=== PATIENT | female | born 1950 | race Caucasian/White ===

== ENCOUNTER → 2017-11-21 | Outpatient (CLI) | payer MEDICARE ==
[~2017-11-21] MED LIST: ACYC-57 PO; ALBU8.5H8 INH; CETI-158 PO; DOCU240C53 PO; ESTR42.53 TP; FLUT100B IH; FLUT9.9S NAS; GABA-826 PO; GABA300C10 PO; HYDR25TA11 PO; HYDR7CRE TP; LEVO150T5 PO; LISI-167 PO; MULT1TAB60 PO; OXYB5TAB7 PO; OXYC5CAP2 PO; SERT100T5 PO; TRAM50TA2 PO
[2017-11-21 13:14] LABS: BASOPHILS # (AUTO) 0.03 x10^3/uL (0-0.1); BASOPHILS % (AUTO) 0 % (0-1); EOSINOPHILS # (AUTO) 0.16 x10^3/uL (0-0.4); EOSINOPHILS % (AUTO) 2 % (1-7); LYMPHOCYTES # (AUTO) 1.03 x10^3/uL (1-3.4); LYMPHOCYTES % (AUTO) 12 % (22-44); MD NO; MEAN CORPUSCULAR HEMOGLOBIN 27.5 pg (27.0-34.8); MEAN CORPUSCULAR HGB CONC 32.8 g/dL (32.4-35.8); MEAN CORPUSCULAR VOLUME 83.8 fL (80-100); MEAN PLATELET VOLUME 7.7 fL (7.4-10.4); MONOCYTES % (AUTO) 7 % (2-9); NEUTROPHILS # (AUTO) 6.76 x10^3/uL (1.8-6.8); NEUTROPHILS % (AUTO) 79 % (42-75); PLATELET COUNT 398 x10^3/uL (130-400); RED BLOOD COUNT 5.25 x10^6/uL (3.82-5.3); RED CELL DISTRIBUTION WIDTH 15.1 % (9.6-15.2)
[2017-11-21 13:19] LABS: INTERNATIONAL NORMALIZED RATIO 1.01 (0.93-1.1); PROTHROMBIN TIME 10.4 Seconds (9.6-11.5)
[2017-11-21 13:23] LABS: ALANINE AMINOTRANSFERASE 23 U/L (12-78); ALBUMIN 4.5 g/dL (3.4-5.0); ANION GAP 7 mmol/L (5-15); CALCIUM 10.2 mg/dL (8.5-10.1); CHLORIDE 105 mmol/L (98-107); CREATININE 0.74 mg/dL (0.55-1.02)
[2017-11-21 13:26] LABS: ALKALINE PHOSPHATASE 97 U/L (45-117); BILIRUBIN,TOTAL 0.3 mg/dL (0.2-1.0); TOTAL PROTEIN 8.1 g/dL (6.4-8.2)
[2017-11-21 13:37] LABS: HEMOGLOBIN A1C 5.8 % (4.2-6.3)
== END | disposition home or self-care (01) ==
LOC: STAR 11:58
PROVIDERS: ATTEND Orthopaedic Surgery
DX: Z01.818 Encounter for other preprocedural examination (principal); M16.12 Unilateral primary osteoarthritis, left hip; M25.552 Pain in left hip
CPT/HCPCS: 36415; 80053; 83036; 85025; 85610; 85730; 87081; 93005

== ENCOUNTER 2019-01-30 14:57 | Inpatient (IN) | payer MEDICARE ==
[~2019-01-30] VITALS: Ht 170.2 cm; Wt 93.0 kg
[~2019-01-30 14:57] MED LIST changes: +HYDR-826 PO; -HYDR25TA11 PO; +MELO7.5T31 PO; +SERT100T32 PO; -SERT100T5 PO
--- NOTE | 2019-01-30 15:15 | NUR ---
PT HERE TODAY FOR FALL OFF OF TOILET. PT FELL TUESDAY AND FELT CRACK ON LEFT HIP- WAS ON THE FLOOR ONE DAY UNTIL PICKED UP BY NEPHEW. THEN FELL TUESDAY. PICKED UP AGAIN. TODAY FELL OFF OF TOILET TODAY. STATES SHE IS FEELING DIZZY WHEN THESE FALLS HAPPEN. HX DANTE KNEES AND DANTE HIPS. USES WALKER AT HOME. STATES FALLING IS NOT NORMAL FOR HER AND JUST STARTED HAPPENING THIS WEEK. PT CURRENTLY RESTING ON [employer]. NADN. VSS. PT'S SISTER AT BEDSIDE. STATES PAIN IS 2/140 IN LEFT HIP AT THIS TIME.
--- NOTE | 2019-01-30 15:51 | NUR ---
PT TO XRAY
--- NOTE | 2019-01-30 16:03 | NUR ---
PT BACK FROM [facility]. RESTING ON [employer]. CONNECTED TO MONITOR. TARIK.
[2019-01-30] MEDS ORDERED: HYDROmorphone 1 MG/ML, 1ML INJ IVPush PRN (17:30)
[2019-01-30] MEDS ORDERED: SODIUM CHLORIDE FLUSH 10ML SYR IVF ONE (17:30)
--- NOTE | 2019-01-30 17:34 | NUR ---
PT GOING TO CT NOW.
[2019-01-30 17:42] LABS: BASOPHILS # (AUTO) 0.08 x10^3/uL (0-0.1); BASOPHILS % (AUTO) 1 % (0-1); EOSINOPHILS # (AUTO) 0.33 x10^3/uL (0-0.4); EOSINOPHILS % (AUTO) 3 % (1-7); LYMPHOCYTES # (AUTO) 1.03 x10^3/uL (1-3.4); LYMPHOCYTES % (AUTO) 11 % (22-44); MD NO; MEAN CORPUSCULAR HGB CONC 32.6 g/dL (32.4-35.8); MEAN CORPUSCULAR VOLUME 88.8 fL (80-100); MEAN PLATELET VOLUME 6.9 fL (7.4-10.4); MONOCYTES # (AUTO) 0.73 x10^3/uL (0.2-0.8); MONOCYTES % (AUTO) 8 % (2-9); NEUTROPHILS # (AUTO) 7.64 x10^3/uL (1.8-6.8); NEUTROPHILS % (AUTO) 78 % (42-75); PLATELET COUNT 382 x10^3/uL (130-400); RED BLOOD COUNT 4.43 x10^6/uL (3.82-5.3); RED CELL DISTRIBUTION WIDTH 14.6 % (9.6-15.2)
[2019-01-30 17:50] LABS: ALBUMIN 3.6 g/dL (3.4-5.0); ANION GAP 9 mmol/L (5-15); CALCIUM 9.4 mg/dL (8.5-10.1); CHLORIDE 96 mmol/L (98-107); CREATININE 0.48 mg/dL (0.55-1.02)
[2019-01-30 17:52] LABS: CREATINE KINASE, TOTAL 469 U/L (26-192)
--- NOTE | 2019-01-30 17:59 | NUR ---
PT BACK FROM [place]. PROVIDED WITH MEAL TRAY. VSS. MONTANEZ. REQUESTING THAT ONCE SHE IS FINISHED WITH DINNER SHE BE CLEANED SHE WAS INCONTINENT.
--- NOTE | 2019-01-30 19:17 | NUR ---
CARE ASSUMED, BEDSIDE REPORT RECIEVED. PT SITTING UP ON GURNEY FOR MEAL, DENIES PAIN, VITALS STABLE. PUREWICK TO BE PLACED WHEN FINISHED EATING, WIAITNG FOR BED ASSIGNMENT.
[2019-01-30] MEDS ORDERED: ACETAMINOPHEN 325 MG TABLET PO PRN (20:00)
[2019-01-30] MEDS ORDERED: POLYETHYLENE GLYCOL 17 GM PACKET PO PRN (20:00)
[2019-01-30] MEDS ORDERED: LABETALOL 5MG/ML, 20ML IVPush PRN (20:00)
[2019-01-30] MEDS ORDERED: morphine SULFATE 10 MG/ML, 1ML IVPush PRN (20:00)
[2019-01-30] MEDS ORDERED: hydrALAzine 20 MG/ML, 1ML IVPush PRN (20:00)
[2019-01-30] MEDS ORDERED: TEMPLATE NON-FORMULARY MED. (Albuterol Sulfate (Proair Hfa) 90 MCG) INH SCH (20:00)
[2019-01-30] MEDS ORDERED: ONDANSETRON 2MG/ML, 2ML IVPush PRN (20:00)
[2019-01-30] MEDS ORDERED: BISACODYL 10 MG SUPP PR PRN (20:00)
--- NOTE | 2019-01-30 20:00 | NUR ---
PT HAS DIFFICULTY TURNING SELF IN BED SECONDARY TO PAIN WITH MOVEMENT. PERIAREA CLEANED, UNABLE TO REPLACE SHEETS WITH 2 ASSISST. PUREWICK PLACED AND TOLERATES WELL. WILL ATTEMPT REPOSTIONING AFTER PAIN MEDICATION.
[2019-01-30] MEDS ORDERED: HYDROmorphone 1 MG/ML, 1ML VIAL ONE (20:04)
--- NOTE | 2019-01-30 20:11 | NUR ---
Pt medicated for pain per MD orders, placed on 2 lpm via NC for O2 sat of 90-93% RA.
[2019-01-30] MEDS ORDERED: GABAPENTIN 300 MG CAPSULE PO SCH (21:00)
--- NOTE | 2019-01-30 21:15 | NUR ---
Ptresting on dank, pain improved, vitals stable, report called to Linda PERAZA. Pt updated on plan of care.
[2019-01-30] MEDS ORDERED: OXYC5TAB2 PO (22:34)
[2019-01-30] MEDS ORDERED: ESTR42.53 TP (22:34)
[2019-01-30] MEDS ORDERED: ACET-1600 PO (22:34)
[2019-01-30] MEDS: ENOXAPARIN 30 MG/0.3 ML SQ SCH (23:23)
[2019-01-30] MEDS: GABAPENTIN 100 MG CAPSULE PO SCH (23:23)
[2019-01-30] MEDS: GABAPENTIN 300 MG CAPSULE PO SCH (23:23)
[2019-01-30] MEDS: LACTATED RINGERS 1,000 ML IV SCH (23:33)
[2019-01-31] MEDS: HYDROcodone/APAP 5/325 TABLET PO PRN ×5 (00:14→21:43)
[2019-01-31 03:35] VITALS: BP 126/74
[2019-01-31 05:06] LABS: CHLORIDE 100 mmol/L (98-107)
[2019-01-31 05:15] LABS: ALANINE AMINOTRANSFERASE 21 U/L (12-78); ALBUMIN 3.2 g/dL (3.4-5.0); ALKALINE PHOSPHATASE 81 U/L (45-117); ANION GAP 9 mmol/L (5-15); BILIRUBIN,TOTAL 0.3 mg/dL (0.2-1.0); CALCIUM 9.3 mg/dL (8.5-10.1); CREATINE KINASE, TOTAL 321 U/L (26-192); CREATININE 0.48 mg/dL (0.55-1.02); TOTAL PROTEIN 6.5 g/dL (6.4-8.2)
[2019-01-31 07:46] LABS: INTERNATIONAL NORMALIZED RATIO 0.93 (0.93-1.1); PROTHROMBIN TIME 9.8 Seconds (9.6-11.5)
[2019-01-31 08:01] VITALS: BP 115/55
[2019-01-31] MEDS: LACTATED RINGERS 1,000 ML IV SCH ×2 (08:07→16:26)
[2019-01-31] MEDS: BUDESONIDE 0.5 MG/2 ML INHA INH SCH ×2 (09:00→20:41)
[2019-01-31] MEDS: ENOXAPARIN 30 MG/0.3 ML SQ SCH ×2 (09:23→21:42)
[2019-01-31] MEDS: OXYBUTYNIN CHLORIDE 5 MG TABLET PO SCH (09:23)
[2019-01-31] MEDS: CETIRIZINE 10 MG TABLET PO SCH (09:23)
[2019-01-31] MEDS: GABAPENTIN 300 MG CAPSULE PO SCH ×3 (09:23→21:43)
[2019-01-31] MEDS: LEVOTHYROXINE 150 MCG TABLET PO SCH (09:24)
[2019-01-31] MEDS: SERTRALINE 100MG TABLET PO SCH (09:24)
[2019-01-31] MEDS: MULTIVITAMIN 1 TABLET PO SCH (09:24)
[2019-01-31] MEDS: LISINOPRIL 10 MG TABLET PO SCH (09:28)
[2019-01-31] MEDS: FLUTICASONE NASAL SPRAY 16GM NAS SCH (10:25)
[2019-01-31 12:49] VITALS: BP 101/63
[2019-01-31 18:50] VITALS: BP 112/71
[2019-01-31] MEDS: GABAPENTIN 100 MG CAPSULE PO SCH (21:43)
[2019-02-01] MEDS: HYDROcodone/APAP 5/325 TABLET PO PRN ×4 (00:38→19:49)
[2019-02-01 01:01] VITALS: BP 156/76
[2019-02-01] MEDS ORDERED: HYDROmorphone 2 MG/ML, 1ML IV ONE (02:30)
[2019-02-01] MEDS: LACTATED RINGERS 1,000 ML IV SCH (04:08)
[2019-02-01 07:35] VITALS: BP 146/81
[2019-02-01] MEDS: GABAPENTIN 300 MG CAPSULE PO SCH ×2 (09:30→17:34)
[2019-02-01] MEDS: MULTIVITAMIN 1 TABLET PO SCH (09:30)
[2019-02-01] MEDS: OXYBUTYNIN CHLORIDE 5 MG TABLET PO SCH (09:30)
[2019-02-01] MEDS: SERTRALINE 100MG TABLET PO SCH (09:30)
[2019-02-01] MEDS: CETIRIZINE 10 MG TABLET PO SCH (09:30)
[2019-02-01] MEDS: LISINOPRIL 10 MG TABLET PO SCH (09:31)
[2019-02-01] MEDS: ENOXAPARIN 30 MG/0.3 ML SQ SCH (09:31)
[2019-02-01] MEDS: FLUTICASONE NASAL SPRAY 16GM NAS SCH (09:31)
[2019-02-01] MEDS: BUDESONIDE 0.5 MG/2 ML INHA INH SCH ×2 (09:43→21:35)
[2019-02-01] MEDS: LEVOTHYROXINE 150 MCG TABLET PO SCH (11:04)
[2019-02-01] MEDS ORDERED: LACTATED RINGERS 1,000 ML IV SCH (12:00)
[2019-02-01 14:55] VITALS: BP 129/70
[2019-02-01 21:24] VITALS: BP 145/86
[2019-02-01] MEDS ORDERED: GABAPENTIN 300 MG CAPSULE PO ONE (21:30)
[2019-02-02] MEDS: HYDROcodone/APAP 5/325 TABLET PO PRN ×4 (00:03→20:01)
[2019-02-02] MEDS: LACTATED RINGERS 1,000 ML IV SCH ×2 (01:11→21:00)
[2019-02-02 03:30] VITALS: BP 138/79
[2019-02-02 06:00] LABS: CHLORIDE 101 mmol/L (98-107)
[2019-02-02 06:05] LABS: ANION GAP 6 mmol/L (5-15); CALCIUM 9.2 mg/dL (8.5-10.1); CREATININE 0.49 mg/dL (0.55-1.02)
[2019-02-02 06:11] LABS: BASOPHILS # (AUTO) 0.06 x10^3/uL (0-0.1); BASOPHILS % (AUTO) 1 % (0-1); EOSINOPHILS # (AUTO) 0.43 x10^3/uL (0-0.4); EOSINOPHILS % (AUTO) 6 % (1-7); LYMPHOCYTES # (AUTO) 1.19 x10^3/uL (1-3.4); LYMPHOCYTES % (AUTO) 17 % (22-44); MD NO; MEAN CORPUSCULAR HEMOGLOBIN 28.2 pg (27.0-34.8); MEAN CORPUSCULAR HGB CONC 31.9 g/dL (32.4-35.8); MEAN CORPUSCULAR VOLUME 88.4 fL (80-100); MEAN PLATELET VOLUME 6.4 fL (7.4-10.4); MONOCYTES # (AUTO) 0.62 x10^3/uL (0.2-0.8); MONOCYTES % (AUTO) 9 % (2-9); NEUTROPHILS # (AUTO) 4.88 x10^3/uL (1.8-6.8); NEUTROPHILS % (AUTO) 68 % (42-75); PLATELET COUNT 403 x10^3/uL (130-400); RED BLOOD COUNT 3.99 x10^6/uL (3.82-5.3); RED CELL DISTRIBUTION WIDTH 14.4 % (9.6-15.2)
[2019-02-02] MEDS ORDERED: KETOROLAC 60 MG/2 ML ONE (06:25)
[2019-02-02] MEDS ORDERED: TRANEXAMIC ACID 100 MG/ML, 10ML ONE ×2 (06:25)
[2019-02-02] MEDS ORDERED: VANCOMYCIN 1,000 MG ONE ×3 (06:25→10:54)
[2019-02-02] MEDS ORDERED: ROPIvacaine/PF 0.5%, 30 ML ONE (06:25)
[2019-02-02] MEDS ORDERED: EPINEPHRINE 1 MG/ML, 1ML ONE (06:26)
[2019-02-02] MEDS ORDERED: SODIUM CHLORIDE 0.9% 50 ML ONE (06:26)
[2019-02-02] MEDS: LEVOTHYROXINE 150 MCG TABLET PO SCH (06:51)
[2019-02-02 07:52] VITALS: BP 148/84
[2019-02-02] MEDS: BUDESONIDE 0.5 MG/2 ML INHA INH SCH ×2 (08:50→19:30)
[2019-02-02] MEDS ORDERED: MIDAZOLAM 1 MG/ML, 2ML ONE (08:52)
[2019-02-02] MEDS ORDERED: FENTANYL PF 250 MCG/5ML ONE (08:52)
[2019-02-02] MEDS: OXYBUTYNIN CHLORIDE 5 MG TABLET PO SCH ×3 (09:00→21:00)
[2019-02-02] MEDS: CETIRIZINE 10 MG TABLET PO SCH (09:00)
[2019-02-02] MEDS: FLUTICASONE NASAL SPRAY 16GM NAS SCH ×2 (09:00→23:07)
[2019-02-02] MEDS ORDERED: SUCCINYLCHOLINE 20 MG/ML, 10ML ONE (09:40)
[2019-02-02] MEDS ORDERED: ROCURONIUM 10 MG/ML,10ML ONE (09:40)
[2019-02-02] MEDS ORDERED: FENTANYL PF 100 MCG/2ML ONE ×3 (11:11→12:08)
[2019-02-02] MEDS ORDERED: hydrALAzine 20 MG/ML, 1ML ONE (11:12)
[2019-02-02] MEDS ORDERED: CEFAZOLIN 1,000 MG ONE (11:12)
[2019-02-02] MEDS ORDERED: PROPOFOL 10 MG/ML, 20ML ONE (11:12)
[2019-02-02] MEDS ORDERED: ONDANSETRON 2MG/ML, 2ML ONE (11:12)
[2019-02-02] MEDS ORDERED: DEXAMETHASONE 4 MG/ML, 1ML ONE (11:12)
[2019-02-02] MEDS: HYDROmorphone 2 MG/ML, 1ML IVPush PRN ×5 (11:31→12:45)
[2019-02-02] MEDS ORDERED: HYDROmorphone 2 MG/ML, 1ML ONE (11:45)
[2019-02-02] MEDS: FENTANYL PF 100 MCG/2ML IV PRN ×3 (11:46→12:11)
[2019-02-02] MEDS ORDERED: hydrALAzine 20 MG/ML, 1ML IV PRN (12:00)
[2019-02-02] MEDS ORDERED: ACETAMINOPHEN 325 MG TABLET PO PRN (12:00)
[2019-02-02] MEDS ORDERED: ONDANSETRON 2MG/ML, 2ML IV PRN (12:00)
[2019-02-02] MEDS ORDERED: ALBUTEROL/IPRATROPIUM 2.5MG/0.5MG, 3 ML NPPB PRN (12:00)
[2019-02-02] MEDS ORDERED: MIDAZOLAM 1 MG/ML, 2ML IV PRN (12:00)
[2019-02-02] MEDS: GABAPENTIN 100 MG CAPSULE PO SCH ×3 (12:00→17:00)
[2019-02-02] MEDS ORDERED: MEPERIDINE/PF 25MG/ML,1ML IVPush PRN (12:00)
[2019-02-02] MEDS ORDERED: METOPROLOL 1 MG/ML, 5ML IV PRN (12:00)
[2019-02-02] MEDS ORDERED: PROMETHAZINE 25 MG/ML, 1ML IV PRN (12:00)
[2019-02-02] MEDS ORDERED: OXYcodone 5 MG/5 ML ORAL.SOL UDC PO PRN (12:00)
[2019-02-02] MEDS ORDERED: DIAZEPAM 5 MG/ML, 2ML IVPush PRN (12:00)
[2019-02-02] MEDS ORDERED: OXYcodone 5 MG/5 ML ORAL.SOL UDC ONE (12:01)
[2019-02-02] MEDS: MULTIVITAMIN 1 TABLET PO SCH (15:27)
[2019-02-02] MEDS: SERTRALINE 100MG TABLET PO SCH (15:27)
[2019-02-02] MEDS: LISINOPRIL 10 MG TABLET PO SCH (15:27)
[2019-02-02] MEDS: HYDROmorphone 2 MG/ML, 1ML IM PRN ×2 (18:28→23:01)
[2019-02-02] MEDS: CEFAZOLIN 2,000 MG in SODIUM CHLORIDE 0.9% 50 ML IV SCH (18:28)
[2019-02-02 19:25] VITALS: BP 130/89
[2019-02-02] MEDS: ASPIRIN 81 MG TABLET CHEW PO SCH (20:01)
[2019-02-02] MEDS: GABAPENTIN 300 MG CAPSULE PO SCH (20:02)
[2019-02-02] MEDS: DOCUSATE 100 MG CAPSULE PO PRN (20:02)
[2019-02-03 00:56] VITALS: BP 128/68
[2019-02-03] MEDS: CEFAZOLIN 2,000 MG in SODIUM CHLORIDE 0.9% 50 ML IV SCH (03:13)
[2019-02-03] MEDS: HYDROcodone/APAP 5/325 TABLET PO PRN ×5 (03:13→21:37)
[2019-02-03] MEDS: HYDROmorphone 2 MG/ML, 1ML IM PRN ×2 (05:20→10:25)
[2019-02-03 07:15] VITALS: BP 130/71
[2019-02-03] MEDS: MULTIVITAMIN 1 TABLET PO SCH (07:38)
[2019-02-03] MEDS: LISINOPRIL 10 MG TABLET PO SCH (07:38)
[2019-02-03] MEDS: OXYBUTYNIN CHLORIDE 5 MG TABLET PO SCH ×2 (07:38→21:37)
[2019-02-03] MEDS: CETIRIZINE 10 MG TABLET PO SCH (07:38)
[2019-02-03] MEDS: ASPIRIN 81 MG TABLET CHEW PO SCH ×2 (07:38→21:37)
[2019-02-03] MEDS: SERTRALINE 100MG TABLET PO SCH (07:38)
[2019-02-03] MEDS: GABAPENTIN 100 MG CAPSULE PO SCH ×3 (07:38→17:16)
[2019-02-03] MEDS: LEVOTHYROXINE 150 MCG TABLET PO SCH (07:38)
[2019-02-03 09:25] LABS: BASOPHILS # (AUTO) 0.03 x10^3/uL (0-0.1); BASOPHILS % (AUTO) 0 % (0-1); EOSINOPHILS # (AUTO) 0.39 x10^3/uL (0-0.4); EOSINOPHILS % (AUTO) 4 % (1-7); LYMPHOCYTES # (AUTO) 0.91 x10^3/uL (1-3.4); LYMPHOCYTES % (AUTO) 9 % (22-44); MD NO; MEAN CORPUSCULAR HEMOGLOBIN 28.9 pg (27.0-34.8); MEAN CORPUSCULAR VOLUME 87.6 fL (80-100); MEAN PLATELET VOLUME 6.5 fL (7.4-10.4); MONOCYTES # (AUTO) 0.79 x10^3/uL (0.2-0.8); MONOCYTES % (AUTO) 8 % (2-9); NEUTROPHILS # (AUTO) 8.02 x10^3/uL (1.8-6.8); NEUTROPHILS % (AUTO) 79 % (42-75); PLATELET COUNT 447 x10^3/uL (130-400); RED BLOOD COUNT 3.38 x10^6/uL (3.82-5.3); RED CELL DISTRIBUTION WIDTH 14.2 % (9.6-15.2)
[2019-02-03 09:33] LABS: ANION GAP 8 mmol/L (5-15); CALCIUM 8.8 mg/dL (8.5-10.1); CHLORIDE 94 mmol/L (98-107); CREATININE 0.59 mg/dL (0.55-1.02)
[2019-02-03] MEDS: BUDESONIDE 0.5 MG/2 ML INHA INH SCH ×2 (10:13→20:18)
[2019-02-03 13:20] VITALS: BP 115/83
[2019-02-03 15:35] LABS: CULTURE INDICATED? YES; MICROSCOPIC INDICATED
[2019-02-03] MEDS: LACTATED RINGERS 1,000 ML IV SCH (17:16)
[2019-02-03] MEDS: IBUPROFEN 600 MG TABLET PO PRN (19:48)
[2019-02-03 20:24] VITALS: BP 157/76
[2019-02-03] MEDS: GABAPENTIN 300 MG CAPSULE PO SCH (21:37)
[2019-02-04 04:15] VITALS: BP 137/73
[2019-02-04] MEDS: HYDROcodone/APAP 5/325 TABLET PO PRN ×5 (04:18→20:52)
[2019-02-04] MEDS: DOCUSATE 100 MG CAPSULE PO PRN (04:18)
[2019-02-04 05:13] LABS: BASOPHILS # (AUTO) 0.05 x10^3/uL (0-0.1); BASOPHILS % (AUTO) 1 % (0-1); EOSINOPHILS # (AUTO) 0.99 x10^3/uL (0-0.4); EOSINOPHILS % (AUTO) 12 % (1-7); LYMPHOCYTES # (AUTO) 0.85 x10^3/uL (1-3.4); LYMPHOCYTES % (AUTO) 10 % (22-44); MD NO; MEAN CORPUSCULAR HEMOGLOBIN 28.9 pg (27.0-34.8); MEAN CORPUSCULAR HGB CONC 33.2 g/dL (32.4-35.8); MEAN CORPUSCULAR VOLUME 87.3 fL (80-100); MEAN PLATELET VOLUME 6.3 fL (7.4-10.4); MONOCYTES # (AUTO) 0.69 x10^3/uL (0.2-0.8); MONOCYTES % (AUTO) 8 % (2-9); NEUTROPHILS # (AUTO) 5.94 x10^3/uL (1.8-6.8); NEUTROPHILS % (AUTO) 70 % (42-75); PLATELET COUNT 485 x10^3/uL (130-400); RED CELL DISTRIBUTION WIDTH 14.4 % (9.6-15.2)
[2019-02-04 05:20] LABS: ANION GAP 5 mmol/L (5-15); CALCIUM 8.6 mg/dL (8.5-10.1); CHLORIDE 99 mmol/L (98-107); CREATININE 0.51 mg/dL (0.55-1.02)
[2019-02-04] MEDS ORDERED: LEVOTHYROXINE 150 MCG TABLET PO SCH (06:00)
[2019-02-04] MEDS: OXYBUTYNIN CHLORIDE 5 MG TABLET PO SCH ×2 (08:10→20:52)
[2019-02-04] MEDS: CETIRIZINE 10 MG TABLET PO SCH (08:11)
[2019-02-04] MEDS: LEVOTHYROXINE 150 MCG TABLET PO SCH (08:11)
[2019-02-04] MEDS: ASPIRIN 81 MG TABLET CHEW PO SCH ×2 (08:11→20:52)
[2019-02-04] MEDS: SERTRALINE 100MG TABLET PO SCH (08:12)
[2019-02-04] MEDS: LISINOPRIL 10 MG TABLET PO SCH (08:12)
[2019-02-04] MEDS: MULTIVITAMIN 1 TABLET PO SCH (08:12)
[2019-02-04] MEDS: GABAPENTIN 100 MG CAPSULE PO SCH ×3 (08:12→16:23)
[2019-02-04] MEDS: FLUTICASONE NASAL SPRAY 16GM NAS SCH (08:14)
[2019-02-04 08:15] VITALS: BP 109/65
[2019-02-04] MEDS: ONDANSETRON ODT 4 MG PO PRN ×2 (09:25→16:23)
[2019-02-04] MEDS: BUDESONIDE 0.5 MG/2 ML INHA INH SCH ×2 (09:25→21:30)
[2019-02-04] MEDS ORDERED: HYDROmorphone 2 MG/ML, 1ML IV PRN (10:30)
[2019-02-04] MEDS: LACTATED RINGERS 1,000 ML IV SCH (12:43)
[2019-02-04] MEDS: CEPHALEXIN 500 MG CAPSULE PO SCH ×2 (13:00→20:52)
[2019-02-04] MEDS ORDERED: CEPHALEXIN 250 MG CAPSULE ONE (13:08)
[2019-02-04 13:45] VITALS: BP 128/69
[2019-02-04] MEDS: IBUPROFEN 600 MG TABLET PO PRN (14:13)
[2019-02-04 19:27] VITALS: BP 122/76
[2019-02-04] MEDS: GABAPENTIN 300 MG CAPSULE PO SCH (20:52)
[2019-02-04] MEDS ORDERED: CEPHALEXIN 250 MG/5 ML, ORAL SUSP PO SCH (21:00)
[2019-02-04] MEDS ORDERED: CEPHALEXIN 500 MG CAPSULE PO SCH (21:00)
[2019-02-05 01:27] VITALS: BP 118/54
[2019-02-05] MEDS: HYDROcodone/APAP 5/325 TABLET PO PRN ×4 (01:34→14:28)
[2019-02-05 05:10] LABS: BASOPHILS # (AUTO) 0.02 x10^3/uL (0-0.1); BASOPHILS % (AUTO) 0 % (0-1); EOSINOPHILS # (AUTO) 1.06 x10^3/uL (0-0.4); EOSINOPHILS % (AUTO) 13 % (1-7); LYMPHOCYTES % (AUTO) 12 % (22-44); MD NO; MEAN CORPUSCULAR HEMOGLOBIN 28.5 pg (27.0-34.8); MEAN CORPUSCULAR HGB CONC 32.7 g/dL (32.4-35.8); MEAN CORPUSCULAR VOLUME 86.9 fL (80-100); MEAN PLATELET VOLUME 6.3 fL (7.4-10.4); MONOCYTES # (AUTO) 0.76 x10^3/uL (0.2-0.8); MONOCYTES % (AUTO) 9 % (2-9); NEUTROPHILS # (AUTO) 5.44 x10^3/uL (1.8-6.8); NEUTROPHILS % (AUTO) 66 % (42-75); PLATELET COUNT 434 x10^3/uL (130-400); RED BLOOD COUNT 2.98 x10^6/uL (3.82-5.3); RED CELL DISTRIBUTION WIDTH 14.4 % (9.6-15.2)
[2019-02-05] MEDS: LEVOTHYROXINE 150 MCG TABLET PO SCH (05:37)
[2019-02-05 07:15] VITALS: BP 123/82
[2019-02-05] MEDS: BUDESONIDE 0.5 MG/2 ML INHA INH SCH (07:26)
[2019-02-05] MEDS: FLUTICASONE NASAL SPRAY 16GM NAS SCH (08:24)
[2019-02-05] MEDS: CEPHALEXIN 500 MG CAPSULE PO SCH (08:24)
[2019-02-05] MEDS: SERTRALINE 100MG TABLET PO SCH (08:24)
[2019-02-05] MEDS: OXYBUTYNIN CHLORIDE 5 MG TABLET PO SCH (08:24)
[2019-02-05] MEDS: MULTIVITAMIN 1 TABLET PO SCH (08:25)
[2019-02-05] MEDS: CETIRIZINE 10 MG TABLET PO SCH (08:25)
[2019-02-05] MEDS: LISINOPRIL 10 MG TABLET PO SCH (08:25)
[2019-02-05] MEDS: LACTATED RINGERS 1,000 ML IV SCH (08:25)
[2019-02-05] MEDS: GABAPENTIN 100 MG CAPSULE PO SCH ×2 (08:25→11:35)
[2019-02-05] MEDS: ASPIRIN 81 MG TABLET CHEW PO SCH (08:25)
[2019-02-05] MEDS: ONDANSETRON ODT 4 MG PO PRN (10:12)
[2019-02-05] MEDS: IBUPROFEN 600 MG TABLET PO PRN (11:35)
[2019-02-05] MEDS ORDERED: CEPH-376 PO (13:11)
[2019-02-05] MEDS ORDERED: DOCU-131 PO (13:11)
[2019-02-05] MEDS ORDERED: ASPI-515 PO (13:11)
[2019-02-05] MEDS ORDERED: HYDR-3237 PO (13:11)
[2019-02-05] MEDS ORDERED: ONDA4VIA60 IVPush (13:11)
[2019-02-05] MEDS ORDERED: IBUP-1222 PO (13:11)
== END 2019-02-05 16:23 | DRG 467 ==
LOC: ED 17:33 → EDIP 19:52 → 4NOR 21:50
PROVIDERS: ADMIT Family Medicine; ATTEND Family Medicine
PROC: 0SPS0JZ Removal of Synthetic Substitute from Left Hip Joint, Femoral Surface, Open Approach (ICD-10-PCS; 2019-02-02)
PROC: 0SRS0JZ Replacement of Left Hip Joint, Femoral Surface with Synthetic Substitute, Open Approach (ICD-10-PCS; principal; 2019-02-02 10:45)
PROC: 0T9B70Z Drainage of Bladder with Drainage Device, Via Natural or Artificial Opening (ICD-10-PCS; 2019-02-03)
DX: S72.052A Unspecified fracture of head of left femur, initial encounter for closed fracture (principal); M97.02XA Periprosthetic fracture around internal prosthetic left hip joint, initial encounter; G61.81 Chronic inflammatory demyelinating polyneuritis; D62 Acute posthemorrhagic anemia; N39.0 Urinary tract infection, site not specified; G72.81 Critical illness myopathy; J45.909 Unspecified asthma, uncomplicated; I11.0 Hypertensive heart disease with heart failure; E03.9 Hypothyroidism, unspecified; F32.9 Major depressive disorder, single episode, unspecified; F41.9 Anxiety disorder, unspecified; G62.9 Polyneuropathy, unspecified; I50.9 Heart failure, unspecified; M19.90 Unspecified osteoarthritis, unspecified site; N32.81 Overactive bladder; R32 Unspecified urinary incontinence; Z91.81 History of falling; Z87.891 Personal history of nicotine dependence; Z96.643 Presence of artificial hip joint, bilateral; Z96.653 Presence of artificial knee joint, bilateral; W18.39XA Other fall on same level, initial encounter; Y93.89 Activity, other specified; Y92.098 Other place in other non-institutional residence as the place of occurrence of the external cause; Y99.8 Other external cause status; Z88.5 Allergy status to narcotic agent; L89.159 Pressure ulcer of sacral region, unspecified stage
CPT/HCPCS: 36415; 72131; 72170; 80048; 80053; 81001; 82040; 82550; 85014; 85018; 85025; 85610; 85730; 87086; 94640; 96374; 99285; G0378; J0171; J0690; J1100; J1170; J1650; J1885; J2250; J2405; J2704; J2795; J3010; J3370; J7626; Q0162; C1776; J0330; J0360; J7120; Q0177